=== PATIENT | male | born 1950 | race African-American/Black ===

== ENCOUNTER 2018-08-13 08:55 | Observation (INO) ==
[2018-08-13] MEDS ORDERED: hydrALAZINE 20 MG/1 ML VIAL ONE (09:28)
[2018-08-13] MEDS ORDERED: hydrALAZINE 20 MG/1 ML VIAL IV STA (09:28)
[2018-08-13] MEDS ORDERED: LORazepam 2 MG/1 ML VIAL ONE (09:31)
[2018-08-13] MEDS ORDERED: LORazepam 2 MG/1 ML VIAL IV STA (09:39)
[2018-08-13] MEDS ORDERED: THIAMINE INJ 100 MG, FOLIC ACID INJ 1 MG, MAGNESIUM SULF INJ 2 GM, MULTIVITAMIN INJ 10 ... IV ONE (09:41)
[2018-08-13 09:47] LABS: Basophils % 0.5 % (0.0-0.8); Hematocrit 43.5 VOL% (42.0-52.0); Hemoglobin 13.4 GM/DL (14.0-18.0); Immature Granulocytes % 0.5 %; Immature Granulocytes Absolute 0.02 #; Lymphocytes # 0.5 10*3/uL (1.4-4.0); Lymphocytes % 10.8 % (21.2-54.2); Mean Corpuscular HGB Conc 30.8 GM/DL (32-36); Mean Corpuscular Hemoglobin 29 PG (27-34); Mean Corpuscular Volume 94.8 FL (87-102); Mean Platelet Volume 9.1 FL (9.6-12.0); Monocytes # 0.3 10*3/uL (0.11-0.8); Neutrophils # 3.4 10*3/uL (1.4-7.4); Neutrophils % 82.2 % (38.7-73.9); Platelet Count 193 T/CUMM (130-400); Red Blood Count 4.59 MC/CUMM (3.8-5.5); Red Cell Distribution Width 13.2 % (9.3-17.3); White Blood Count 4.2 T/CUMM (4-12)
[2018-08-13 09:53] LABS: PT Patient Result 10.9 SECS
[2018-08-13] MEDS ORDERED: ASPIRIN 300 MG SUPP RECTAL STA (09:53)
[2018-08-13 10:05] LABS: Alanine Aminotransferase 16 U/L (16-61); Albumin 3.5 G/DL (3.4-5.0); Alkaline Phosphatase 91 U/L (45-117); Aspartate Amino Transferase 20 U/L (0-37); Blood Urea Nitrogen 7 MG/DL (7-18); Calcium 8.6 MG/DL (8.5-10.1); Glucose 131 MG/DL (74-106); Osmolality,Calculated 269.1 MOS/KG (273-304); Potassium 3.5 MMOL/L (3.5-5.1); Sodium 135 MMOL/L (136-145); Total Protein 7.7 G/DL (6.4-8.3); Troponin I 0.037 NG/ML (0.00-0.045)
[2018-08-13 10:48] LABS: Apearance,Urine CLEAR (Clear); Bilirubin,Urine Negative (Negative); Blood, Urine Small mg/dL (Negative); Glucose,Urine (UA) 50 mg/dL (Negative); Hyaline Casts,Urine 1 /LPF (0-3); Ketones,Urine Negative (Negative); Mucus,Urine Occasional /LPF (Occasional); Nitrite,Urine Negative (Negative); Protein,Urine Negative; RBC,Urine <1 /HPF (0-4); Squamous Epithelial Cell,Urine Occasional /HPF (0-10); Urine Color Yellow (Yellow); Urine Specific Gravity 1.013 (1.001-1.035); WBC,Urine <1 /HPF (0-6)
[2018-08-13] MEDS ORDERED: ONDANSETRON 4 MG/2 ML VIAL IV PRN (10:58)
[2018-08-13] MEDS ORDERED: ACETAMINOPHEN 325 MG TABLET PO PRN (10:58)
[2018-08-13] MEDS ORDERED: PROMETHAZINE 25 MG/1 ML VIAL IM PRN (10:58)
[2018-08-13 11:03] LABS: Barbiturates Screen,Urine Negative (Negative); Benzodiazepines Screen,Urine Positive (Negative); Cannabinoid Screen,Urine Negative (Negative); Opiate Screen,Urine Negative (Negative); Phencyclidine Screen,Urine Negative (Negative)
[2018-08-13 11:30] LABS: Thyroid Stimulating Hormone 1.07 uIU/ml (0.358-3.74)
[2018-08-13] MEDS ORDERED: LORazepam 2 MG/1 ML VIAL IV PRN (15:22)
[2018-08-13] MEDS ORDERED: DICYCLOMINE 10 MG CAPSULE PO PRN (15:24)
[2018-08-13] MEDS ORDERED: METHOCARBAMOL 500 MG TABLET PO PRN (15:24)
[2018-08-13] MEDS ORDERED: HydrOXYzine PAMOATE 25 MG CAPSULE PO PRN (15:24)
[2018-08-13] MEDS: SODIUM CHLORIDE 0.9% 1,000 ML IV SCH ×2 (15:45→22:35)
[2018-08-13] MEDS: amLODIPine 10 MG TABLET PO SCH (16:15)
[2018-08-13] MEDS: chlordiazePOXIDE 25 MG CAPSULE PO SCH ×2 (16:15→21:30)
[2018-08-13] MEDS ORDERED: ATORVASTATIN 40 MG TABLET PO SCH (21:00)
[2018-08-13] MEDS ORDERED: ENOXAPARIN 40 MG/0.4 ML SYRINGE SUBCUT SCH (21:00)
[2018-08-13] MEDS: cloNIDine 0.1 MG TABLET PO SCH (21:30)
[2018-08-14] MEDS: chlordiazePOXIDE 25 MG CAPSULE PO SCH ×2 (03:56→09:22)
[2018-08-14 04:27] LABS: Basophils % 0.9 % (0.0-0.8); Eosinophils # 0.1 10*3/uL (0.0-0.87); Eosinophils % 1.9 % (0.00-10.9); Hematocrit 38.8 VOL% (42.0-52.0); Hemoglobin 12.1 GM/DL (14.0-18.0); Immature Granulocytes % 0.2 %; Immature Granulocytes Absolute 0.01 #; Lymphocytes # 1.4 10*3/uL (1.4-4.0); Lymphocytes % 33.5 % (21.2-54.2); Mean Corpuscular HGB Conc 31.2 GM/DL (32-36); Mean Corpuscular Hemoglobin 29 PG (27-34); Mean Platelet Volume 9.6 FL (9.6-12.0); Monocytes # 0.5 10*3/uL (0.11-0.8); Monocytes % 11.6 % (1.7-12.7); Neutrophils # 2.2 10*3/uL (1.4-7.4); Neutrophils % 51.9 % (38.7-73.9); Platelet Count 189 T/CUMM (130-400); Red Blood Count 4.17 MC/CUMM (3.8-5.5); Red Cell Distribution Width 13.2 % (9.3-17.3); White Blood Count 4.2 T/CUMM (4-12)
[2018-08-14 04:38] LABS: Albumin 3.3 G/DL (3.4-5.0); Bilirubin,Total 1.6 MG/DL (0.2-1.0); Calcium 8.3 MG/DL (8.5-10.1); Osmolality,Calculated 276.3 MOS/KG (273-304); Potassium 3.1 MMOL/L (3.5-5.1); Risk Ratio 2.39; Total Protein 6.8 G/DL (6.4-8.3); VLDL CHOLESTEROL 25.8 MG/DL
[2018-08-14] MEDS: SODIUM CHLORIDE 0.9% 1,000 ML IV SCH (06:24)
[2018-08-14] MEDS ORDERED: FOLIC ACID 1 MG TABLET PO SCH (09:00)
[2018-08-14] MEDS ORDERED: MULTIVITAMIN (CENTRUM) TABLET PO SCH (09:00)
[2018-08-14] MEDS ORDERED: ASPIRIN 325 MG TABLET PO SCH (09:00)
[2018-08-14] MEDS ORDERED: PANTOPRAZOLE 40 MG TABLET PO SCH (09:00)
[2018-08-14] MEDS: POTASSIUM CHLORIDE 20 MEQ TABLET PO SCH ×2 (09:22→14:49)
[2018-08-14] MEDS: cloNIDine 0.1 MG TABLET PO SCH (09:22)
[2018-08-14] MEDS: amLODIPine 10 MG TABLET PO SCH (09:22)
[2018-08-14 12:15] VITALS: BP 128/69
[2018-08-16 13:48] LABS: Folate > 24.0 NG/ML (5.4-24.0); Vitamin B12 135 PG/ML (211-911)
== END 2018-08-14 14:51 | disposition home or self-care (01) ==
LOC: N.EDINP 08:55 → N.ED 08:55 → N.EDINP 12:35 → N.4E 13:59
PROVIDERS: ADMIT Internal Medicine; ATTEND Internal Medicine